=== PATIENT | female | born 2000 | race Caucasian/White ===

== ENCOUNTER 2021-06-02 14:10 | Emergency (ER) | payer OTHER, SELFPAY ==
[2021-06-02 14:14] VITALS: BP 117/78; PULSE 95; RESP 16; TEMP 36.8; O2SAT 100; BMI 27.1
--- NOTE | 2021-06-02 14:18 | DI.RAD.S_ITS ---
PROCEDURE: XR CHEST 1V INDICATIONS: chest pain TECHNIQUE: One view of the chest was acquired. COMPARISON: None. FINDINGS: Surgical changes and devices: None. Lungs and pleura: Lungs are clear. No pleural effusions or pneumothorax. Mediastinum: Mediastinal contours appear normal. Heart size is normal. Bones and chest wall: No suspicious bony lesions. Overlying soft tissues appear unremarkable. IMPRESSION: No evidence acute pulmonary process. Dictated by: Tonny Evans M.D. on 06/02/2021 at 13:51 Approved by: Tonny Evans M.D. on 06/02/2021 at 13:51
[2021-06-02 15:14] LABS: Alanine Aminotransferase 22 IU/L (<35); Albumin 4.6 g/dL (3.5-5.0); Albumin Globulin Ratio 1.4 (1.0-2.8); Alkaline Phosphatase 68 U/L (38-126); Aspartate Aminotransferase 30 IU/L (14-36); BUN Creatinine Ratio 19.4 (6-22); Bilirubin Total 0.6 mg/dL (0.2-1.3); Blood Urea Nitrogen 13 mg/dL (7-17); Calcium 9.4 mg/dL (8.4-10.2); Carbon Dioxide 23 mmol/L (22-32); Chloride 107 mmol/L (98-107); Creatine Kinase 109 U/L (30-135); Estimated Glomerular Filt Rate > 60.0 mL/min (>60); Globulin 3.3 g/dL (1.7-4.1); Glucose 101 mg/dL (70-100); HEMOLYSIS < 15 (0-50); Lipase 84 U/L (23-300); Potassium 3.9 mmol/L (3.4-5.1); Sodium 138 mmol/L (137-145); Total Protein 7.9 g/dL (6.3-8.2)
[2021-06-02 15:15] LABS: Add Manual Diff / Slide Review NO; Basophils Absolute Auto 0 /uL (0-100); Basophils Percent Auto 0.7 % (0-2); Eosinophils Absolute Auto 100 /uL (0-450); Hematocrit 40.7 % (36-46); Hemoglobin 13.7 g/dL (12.0-16.0); Lymphocytes Absolute Auto 2000 /uL (1100-4500); Lymphocytes Percent Auto 30.5 % (25-40); Mean Corpuscular HGB Conc 33.6 % (30-36); Mean Corpuscular Hemoglobin 30.4 PG (26-34); Mean Corpuscular Volume 90.3 fL (80-100); Monocytes Absolute Auto 400 /uL (0-900); Monocytes Percent Auto 5.7 % (3-14); Neutrophils Absolute Auto 4100 /uL (1500-7000); Neutrophils Percent Auto 62.1 % (50-75); Platelet Count 306 X10^3/uL (150-400); Red Blood Cell Count 4.51 X10^6/uL (4.0-5.2); Red Cell Distribution Width 14.2 % (11.6-14.8); White Blood Cell Count 6.5 X10^3/uL (4.5-11.0)
[2021-06-02 15:26] LABS: Troponin I < 0.012 ng/mL (0.01-0.034)
[2021-06-02 15:29] LABS: CKMB % Relative Index 0.4 % (1.5-5.0); Creatine Kinase MB 0.47 ng/mL (<2.37)
--- NOTE | 2021-06-02 16:08 | ED_ITS ---
HPI - Chest Pain General Chief Complaint: Chest Pain Stated Complaint: chest pain 9 hours Time Seen by Provider: 06/02/21 15:50 Source: patient Mode of arrival: Ambulatory Limitations: no limitations History of Present Illness HPI narrative: Patient is a 20-year-old female who presents with chest pain which started at 5:15 a.m. this morning. She said she is lying in bed awake when she felt sharp chest pain in the center of her chest. She says it hurts to take a deep breath. She denies any shortness of breath. She rates it as a 4 or 5. She took some Tylenol and tried to go back to sleep. It has been pretty persistent all day. Nothing makes it better or worse. She did start taking control on Friday. She feels like every time she takes a deep breath it feels tight. She is a non smoker. Related Data Allergies Allergy/AdvReac Type Severity Reaction Status Date / Time No Known Drug Allergies Allergy Verified 06/02/21 18:41 Review of Systems Review of Systems Narrative: GENERAL: Denies chills, fatigue, malaise, fever, sweats, travel HEENT: Denies sinus pain, ear pain, sore throat, difficulty swallowing, neck pain RESPIRATORY: Denies dyspnea, cough, wheezing, hemoptysis, sputum. CARDIOVASCULAR: See HPI GASTROINTESTINAL: Denies nausea, vomiting, abdominal pain, diarrhea, constipation, melena. : Denies dysuria, frequency, incontinence, hematuria, urinary retention, flank pain. MUSCULOSKELETAL: Denies weakness, joint pain, or bony pain SKIN: No rash, no erythema, no pruritus NEUROLOGIC: Denies weakness, dizziness, headache, numbness, change in speech, confusion PSYCHIATRIC: No concerning psychosocial issues. 12 point review of systems is negative except for those stated above and HPI Exam Initial Vital Signs Initial Vital Signs: Vital Signs Temperature 98.2 F 06/02/21 14:14 Pulse Rate 95 H 06/02/21 14:14 Respiratory Rate 16 06/02/21 14:14 Blood Pressure 117/78 06/02/21 14:14 Pulse Oximetry 100 06/02/21 14:14 GENERAL: Well-appearing, well-nourished and in no acute distress. HEENT: Head atraumatic,EOMI, pupils reactive, face symmetric, moist mucous membranes CARDIOVASCULAR: Regular rate and rhythm without murmurs, rubs or gallops. RESPIRATORY: Breath sounds equal bilaterally, no wheezes rales or rhonchi. ABDOMEN: Soft, nontender. Normoactive bowel sounds all 4 quadrants. No guarding or rebound. : No CVA tenderness EXTREMITIES: Normal range of motion, no clubbing or edema. Neurovascularly intact NEUROLOGICAL: Alert and oriented x4.Normal gait and speech. SKIN: Warm, dry, no laceration, no petechiae, no rashes or lesions. Scores PERC Score Age greater than or equal to 50 years: No Heart rate greater than or equal to 100 bpm: No Room Air O2 Sat less than 95%: No Unilateral leg swelling: No Recent trauma or surgery: No Hemoptysis: No Prior PE or DVT: No Hormone Use: Yes Total PERC Score: 1 Wells' Criteria for PE Clinical signs and symptoms of DVT: No PE is #1 Dx or equally likely: No Heart rate > 100: No Immobilization at least 3 days or surg in previous 4 weeks: No History of PE or DVT: No Hemoptysis: No Malignancy w/Treatment within 6 months or palliative: No Wells' PE Score total: 0 Course Orders Ordered: Discontinued Medications Albuterol (Albuterol 2.5 Mg/3 Ml Neb (Adult)) 2.5 mg INH NOW ONE Stop: 06/02/21 16:19 Last Admin: 06/02/21 16:56 Dose: Not Given Documented by: GAUTAM Albuterol (Albuterol Hfa Prepack) 1 box MISC SEEINSTR ONE Stop: 06/02/21 16:45 Last Admin: 06/02/21 16:47 Dose: 1 box Documented by: FRANCY Ketorolac Tromethamine (Ketorolac 30 Mg/Ml Vial) 30 mg IV NOW ONE Stop: 06/02/21 16:19 Last Admin: 06/02/21 16:43 Dose: 30 mg Documented by: GAUTAM Vital Signs Vital signs: Vital Signs - 8 hr 06/02/21 14:14 06/02/21 16:45 06/02/21 16:48 Temperature 98.2 F Pulse Rate 95 H 74 95 H Respiratory Rate 16 16 14 Blood Pressure 117/78 122/74 Pulse Oximetry 100 97 98 MDM - Chest Pain Lab Data Result diagrams: 06/02/21 14:25 06/02/21 14:25 Labs: Lab Results 06/02/21 06/02/21 06/02/21 Range/Units 14:25 14:25 17:09 WBC 6.5 (4.5-11.0) X10^3/uL RBC 4.51 (4.0-5.2) X10^6/uL Hgb 13.7 (12.0-16.0) g/dL Hct 40.7 (36-46) % MCV 90.3 (80-100) fL MCH 30.4 (26-34) PG MCHC 33.6 (30-36) % RDW 14.2 (11.6-14.8) % Plt Count 306 (150-400) X10^3/uL Neut % (Auto) 62.1 (50-75) % Lymph % (Auto) 30.5 (25-40) % [place] % (Auto) 5.7 (3-14) % Eos % (Auto) 1.0 L (2-4) % Baso % (Auto) 0.7 (0-2) % Neut # (Auto) 4100 (8056-3302) /uL Lymph # (Auto) 2000 (9323-2289) /uL [place] # (Auto) 400 (0-900) /uL Eos # (Auto) 100 (0-450) /uL Baso # (Auto) 0 (0-100) /uL D-Dimer < 200 (<230) ng/mL Sodium 138 (137-145) mmol/L Potassium 3.9 (3.4-5.1) mmol/L Chloride 107 (98-107) mmol/L Carbon Dioxide 23 (22-32) mmol/L BUN 13 (7-17) mg/dL Creatinine 0.67 (0.52-1.04) mg/dL Estimated GFR > 60.0 (>60) mL/min BUN/Creatinine Ratio 19.4 (6-22) Glucose 101 H (70-100) mg/dL Calcium 9.4 (8.4-10.2) mg/dL Total Bilirubin 0.6 (0.2-1.3) mg/dL AST 30 (14-36) IU/L ALT 22 (<35) IU/L Alkaline Phosphatase 68 (38-126) U/L Total Creatine Kinase 109 (30-135) U/L CK-MB (CK-2) 0.47 (<2.37) ng/mL CK-MB (CK-2) Rel Index 0.4 L (1.5-5.0) % Troponin I < 0.012 (0.01-0.034) ng/mL Total Protein 7.9 (6.3-8.2) g/dL Albumin 4.6 (3.5-5.0) g/dL Globulin 3.3 (1.7-4.1) g/dL Albumin/Globulin Ratio 1.4 (1.0-2.8) Lipase 84 (23-300) U/L Imaging Data Chest x-ray: Radiologist's Impression: PROCEDURE: XR CHEST 1V INDICATIONS: chest pain TECHNIQUE: One view of the chest was acquired. COMPARISON: None. FINDINGS: Surgical changes and devices: None. Lungs and pleura: Lungs are clear. No pleural effusions or pneumothorax. Mediastinum: Mediastinal contours appear normal. Heart size is normal. Bones and chest wall: No suspicious bony lesions. Overlying soft tissues appear unremarkable. IMPRESSION: No evidence acute pulmonary process. Dictated by: Tonny Evans M.D. on 06/02/2021 at 13:51 ECG Data Interpretation: Normal sinus rhythm rate 75 p.r. interval 142 QRS [address] changes no T-wave inversions no priors to compare MDM Narrative Medical decision making narrative: Patient is young 20-year-old healthy female who has persisted chest tightness ongoing since 5:00 a.m.. His troponin is negative unfortunately perc is 1. D-dimer is negative low risk for PE. She did not have any improvement with his Toradol or albuterol. However while in the emergency department she felt better rib popped back in and instantly helped. Discharge Plan Departure Patient Disposition: Home Clinical Impression: Atypical chest pain Instructions: DI for Atypical Chest Pain Activity Restrictions/Additional Instructions: *You have been diagnosed with atypical chest pain *What to do: At this time blood work EKG and chest x-ray are overall reassuring *Continue to take medications as directed *Follow up with your primary care provider in 2-3 days *Return to ER if you should have worsening chest pain, worsening shortness of breath or any new, worsening or concerning symptoms
[2021-06-02] MEDS: KETOROLAC 30 MG/ML VIAL IV (16:43)
[2021-06-02 16:45] VITALS: BP 122/74; PULSE 74; RESP 16; O2SAT 97
[2021-06-02] MEDS: ALBUTEROL HFA PREPACK 1 BOX MISC (16:47)
[2021-06-02 16:48] VITALS: PULSE 95; RESP 14; O2SAT 98
[2021-06-02 17:57] LABS: D Dimer < 200 ng/mL (<230)
[2021-06-02 18:41] VITALS: BP 116/69; PULSE 83; RESP 14; O2SAT 100
== END 2021-06-02 18:43 | disposition home or self-care (01) ==
PROVIDERS: Emergency Medicine; Emergency Provider Emergency Medicine
DX: R07.89 Other chest pain (principal)
CPT/HCPCS: 36415; 71045; 80053; 82550; 82553; 83690; 84484; 85025; 85379; 93005; 94640; 96374; 99284; J1885

== ENCOUNTER 2023-07-15 20:23 | Emergency (ER) | payer OTHER, SELFPAY ==
[2023-07-15 20:37] VITALS: BP 136/79; PULSE 97; RESP 16; TEMP 36.9; O2SAT 99; BMI 27.1
[2023-07-15 22:00] VITALS: BP 135/78; PULSE 89; RESP 16; O2SAT 99
--- NOTE | 2023-07-15 22:08 | ED_ITS ---
HPI - General Adult General Chief complaint: Eye Problems Stated complaint: L side facial tightening Time Seen by Provider: 07/15/23 21:31 Source: patient Mode of arrival: EMS Limitations: no limitations History of Present Illness HPI narrative: Patient is a 23-year-old otherwise healthy female who was working out when she stated that she felt like the left side of her face specifically her left upper and lower lip and under left eye started to tighten up. She reports no other associated symptoms. Her symptoms have improved somewhat but not completely resolved. She denies chest pain, shortness of breath, headache, sore throat, ear pain, numbness or tingling in upper and lower extremities. She does feel like the right side her mouth is drooping. Related Data Allergies Allergy/AdvReac Type Severity Reaction Status Date / Time No Known Drug Allergies Allergy Verified 06/02/21 18:41 Review of Systems Review of Systems ROS Unobtainable: All systems reviewed & are unremarkable except as noted in HPI and below Patient History Social History Smoking Status: Never smoker Smoking Status: Never smoker alcohol intake frequency: a few times a month Substance Use Type: does not use Exam Initial Vital Signs Initial Vital Signs: Vital Signs Temperature 98.4 F 07/15/23 20:37 Pulse Rate 97 H 07/15/23 20:37 Respiratory Rate 16 07/15/23 20:37 Blood Pressure 136/79 07/15/23 20:37 Pulse Oximetry 99 07/15/23 20:37 Oxygen Delivery Method Room Air 07/15/23 20:37 [facility] Head: normal to inspection and normocephalic Face and sinus: normal facial exam Mouth: oral mucosae normal Teeth and gingiva: dentition normal Eyes General: Yes appearance normal, both eyes and all related structures Skin General: no rashes or lesions noted Neuro General: patient alert, patient awake, patient oriented x3 and moves all extremities Cranial Nerves: CN's II-XI intact bilaterally Speech: speech normal Gait: normal gait Extrem General: normal to inspection and capillary refill normal Course Orders Ordered: Discontinued Medications Cyclobenzaprine HCl (Cyclobenzaprine 10 Mg Prepack) 1 bottle MIS SEEINSTR ONE Stop: 07/15/23 22:09 Last Admin: 07/15/23 22:17 Dose: 1 bottle Documented By: KELLIE Vital Signs Vital signs: Vital Signs - 8 hr 07/15/23 20:37 07/15/23 22:00 Temperature 98.4 F Pulse Rate 97 H 89 Respiratory Rate 16 16 Blood Pressure 136/79 135/78 Pulse Oximetry 99 99 Oxygen Delivery Method Room Air Room Air Medical Decision Making MDM Narrative Medical decision making narrative: Patient has subjective symptoms. I do not notice any differences between the right and left side of her mouth for the right left side of her face. Low suspicion for CVA, TIA. No indication for radiologic studies. No indication for labs. We will try muscle relaxers has what she describes very well could be a facial muscle spasms. Will discharge patient home with return precautions. Discharge Plan Departure Patient Disposition: Home Clinical Impression: Facial spasm Instructions: DI for Muscle Spasm Activity Restrictions/Additional Instructions: He is the muscle relaxers as needed. They can make you drowsy. Contact your medical department for follow-up. Return to the emergency department for new symptoms. Stand Alone Forms: Patient Portal/API
[2023-07-15] MEDS: CYCLOBENZAPRINE 10 MG PREPACK 1 BOTTLE MISC (22:17)
== END 2023-07-15 22:25 | disposition home or self-care (01) ==
PROVIDERS: Emergency Provider Emergency Medicine
DX: G51.39 Clonic hemifacial spasm, unspecified (principal)
CPT/HCPCS: 99281